=== PATIENT | male | born 1965 | race Caucasian/White ===

== ENCOUNTER 2023-04-18 18:35 | Emergency (ER) | payer BC, OTHER ==
[~2023-04-18] VITALS: Ht 170.2 cm; Wt 133.8 kg
[2023-04-18 18:44] VITALS: BP 147/87; PULSE 82; RESP 17; TEMP 98.6; O2SAT 98
[2023-04-18] MEDS ORDERED: NAPR-54 PO (18:50)
[2023-04-18] MEDS ORDERED: ACET-8905 PO (18:50)
[2023-04-18] MEDS ORDERED: KETOROLAC 30 MG/ML VIAL IM ONE (18:55)
[2023-04-18 19:11] VITALS: O2SAT 98
[2023-04-18 19:13] VITALS: BP 147/87; PULSE 82; RESP 17; TEMP 98.6
== END 2023-04-18 19:12 | disposition home or self-care (01) ==
LOC: MED 18:35
DX: M13.861 Other specified arthritis, right knee (principal); Z79.899 Other long term (current) drug therapy
CPT/HCPCS: 96372; 99283; J1885